=== PATIENT | female | born 1995 | race Caucasian/White ===

== ENCOUNTER 2017-01-27 16:12 | Emergency (ER) | payer OTHER ==
--- NOTE | 2017-01-27 17:32 | ER Document Report ---
ED Medical Screen (RME) - General Chief Complaint: Headache Stated Complaint: HEADACHES WEAKNESS Time Seen by Provider: 01/27/17 17:29 Mode of Arrival: Ambulatory Information source: Patient Notes: Patient is a 21-year-old with a history of seizures who presents to the ER today for increased seizure activity over the past 2 weeks. Patient admits to headaches all over her head and over the last day confusion. Significant other states that she has been very confused today, asking over and over again where they were going, asking for things to be repeated, trying to plug in a phone pharmacy technologist to charge her laptop, Etc. Patient is not on any seizure medication. TRAVEL OUTSIDE OF THE [place] IN LAST 30 DAYS: No - Related Data Allergies/Adverse Reactions: No Known Allergies Allergy (Unverified 01/27/17 16:39) Past Medical History - General Information source: Patient, Friend Renal/ Medical History: Denies: Hx Peritoneal Dialysis Review of Systems - Review of Systems Neurological/Psychological: See HPI Physical Exam - Vital signs Vitals: Temp Pulse Resp BP Pulse Ox 98.3 F 108 H 16 132/62 H 100 01/27/17 16:36 01/27/17 16:36 01/27/17 16:36 01/27/17 16:36 01/27/17 16:36 - Notes Notes: PHYSICAL EXAMINATION: GENERAL: Well-appearing and in no acute distress. NEUROLOGICAL: Cranial nerves grossly intact. Normal sensory/motor exams. Course - Vital Signs Vital signs: Temp Pulse Resp BP Pulse Ox 98.3 F 108 H 16 132/62 H 100 01/27/17 16:36 01/27/17 16:36 01/27/17 16:36 01/27/17 16:36 01/27/17 16:36
--- NOTE | 2017-01-27 18:09 | RADIOLOGY REPORT (SQ) ---
EXAM DESCRIPTION: CT HEAD WITHOUT COMPLETED DATE/TIME: 01/27/2017 6:00 pm REASON FOR STUDY: confusion, headache, seizures COMPARISON: None. TECHNIQUE: Axial images acquired through the brain without intravenous contrast. Images reviewed wi th bone, brain and subdural windows. Images stored on PACS. All CT scanners at this facility use dose modulation, iterative reconstruction, and/or weight based d osing when appropriate to reduce radiation dose to as low as reasonably achievable (ALARA). [facility]: Dose Right [facility]: CareDose [facility]: Dose Right [facility]: Teradose 4D [facility]: Smart [employer] RADIATION DOSE: Up-to-date CT equipment and radiation dose reduction techniques were employed. CTDIv ol: 64.6 mGy. DLP: 1034 mGy-cm. mGy. LIMITATIONS: None. FINDINGS: VENTRICLES: Normal size and contour. CEREBRUM: No masses. No hemorrhage. No midline shift. No evidence for acute infarction. Normal gra y/white matter differentiation. No areas of low density in the white matter. CEREBELLUM: No masses. No hemorrhage. No alteration of density. No evidence for acute infarction. EXTRAAXIAL SPACES: No fluid collections. No masses. ORBITS AND GLOBE: No intra- or extraconal masses. Normal contour of globe without masses. CALVARIUM: No fracture. PARANASAL SINUSES: No fluid or mucosal thickening. SOFT TISSUES: No mass or hematoma. OTHER: No other significant finding. IMPRESSION: NORMAL BRAIN CT WITHOUT CONTRAST. EVIDENCE OF ACUTE STROKE: NO. COMMENT: Quality ID # [id number]: Final reports with documentation of one or more dose reduction techniques (e.g., Automated exposure control, adjustment of the mA and/or kV according to patient size, use of iterative reconstruction technique) TECHNICAL DOCUMENTATION: JOB ID: [id number]- All Rights Reserved
[2017-01-27 18:28] LABS: ABSOLUTE BASOPHILS # (AUTO) 0.1 10^3/uL (0.0-0.2); ABSOLUTE EOSINOPHILS # (AUTO) 0.2 10^3/uL (0.0-0.6); ABSOLUTE LYMPHOCYTES (AUTO) 3.7 10^3/uL (0.5-4.7); ABSOLUTE MONOCYTES (AUTO) 0.7 10^3/uL (0.1-1.4); ABSOLUTE NEUT (AUTO) 6.4 10^3/uL (1.7-8.2); BASOPHILS % (AUTO) 0.7 % (0-2); EOSINOPHILS % (AUTO) 1.5 % (0-6); HEMATOCRIT 40.9 % (36.0-47.0); HEMOGLOBIN 13.9 g/dL (12.0-15.5); HGB HCT DIFFERENCE 0.8; LYMPHOCYTES % (AUTO) 33.3 % (13-45); MEAN CORPUSCULAR HEMOGLOBIN 28.9 pg (27.0-33.4); MEAN CORPUSCULAR HGB CONC 34.1 g/dL (32.0-36.0); MEAN CORPUSCULAR VOLUME 85 fl (80-97); MONOCYTES % (AUTO) 6.4 % (3-13); RED BLOOD COUNT 4.83 10^6/uL (3.72-5.28); SEGMENTED NEUTROPHILS % (AUTO) 58.1 % (42-78); WHITE BLOOD COUNT 11.1 10^3/uL (4.0-10.5)
[2017-01-27 18:47] LABS: ALANINE AMINOTRANSFERASE 49 U/L (9-52); ALBUMIN 4.7 g/dL (3.5-5.0); ALKALINE PHOSPHATASE 59 U/L (38-126); ANION GAP 14 (5-19); ASPARTATE AMINO TRANSFERASE 26 U/L (14-36); BILIRUBIN,DIRECT 0.4 mg/dL (0.0-0.4); BILIRUBIN,TOTAL 0.9 mg/dL (0.2-1.3); BLOOD UREA NITROGEN 13 mg/dL (7-20); CALCIUM 9.8 mg/dL (8.4-10.2); CARBON DIOXIDE 25 mmol/L (22-30); CHLORIDE 99 mmol/L (98-107); CREATININE RESULT 0.77 mg/dL (0.52-1.25); GLUCOSE 87 mg/dL (75-110); SODIUM 138.1 mmol/L (137-145); TOTAL PROTEIN 7.7 g/dL (6.3-8.2)
[2017-01-27] MEDS ORDERED: NORMAL SALINE 1000 ML 1,000 ML IV ONE (19:34)
[2017-01-27] MEDS ORDERED: METOCLOPRAMIDE HCL INJ/PF 10 MG/2 ML SDV IV ONE (19:34)
[2017-01-27] MEDS ORDERED: DIPHENHYDRAMINE HCL 50 MG/ML VIAL IV ONE (19:34)
[2017-01-27] MEDS ORDERED: KETOROLAC TROMETHAMINE INJ/PF 30 MG/1 ML SDV IV ONE (19:34)
--- NOTE | 2017-01-27 19:36 | ER Document Report ---
ED General - General Chief Complaint: Headache Stated Complaint: HEADACHES WEAKNESS Time Seen by Provider: 01/27/17 17:29 Mode of Arrival: Ambulatory Notes: Patient is a 21-year-old female that comes emergency department for chief complaint of headaches and confusion. She states that she gets headaches every day of her life for the past 6 years, she states this was not particularly worse than usual but her significant other has been telling her that she has had difficulty focusing, she has to be redirected, and she has difficulty remembering things. Patient states that she has been evaluated for seizures, she states that she was told when she feels lightheadedness coming over her to lie down and clench her jaw to keep from biting her tongue when she has a seizure. She is not on any seizure medications. She has been evaluated by neurology. She is currently only taking cyclobenzaprine for headaches and she states it is not helping. She denies any head injury, fever, vomiting, focal numbness or weakness, visual changes. TRAVEL OUTSIDE OF THE [place] IN LAST 30 DAYS: No - Related Data Allergies/Adverse Reactions: No Known Allergies Allergy (Unverified 01/27/17 16:39) Past Medical History - General Information source: Patient, Friend - Social History Smoking Status: Current Every Day Smoker Frequency of alcohol use: None Drug Abuse: None Lives with: Family Family History: Reviewed & Not Pertinent Patient has suicidal ideation: No Patient has homicidal ideation: No Renal/ Medical History: Denies: Hx Peritoneal Dialysis Surgical Hx: Negative - Immunizations Immunizations up to date: Yes Hx Diphtheria, Pertussis, Tetanus Vaccination: Yes Review of Systems - Review of Systems Constitutional: No symptoms reported EENT: No symptoms reported Cardiovascular: See HPI Respiratory: No symptoms reported Gastrointestinal: No symptoms reported Genitourinary: No symptoms reported Female Genitourinary: No symptoms reported Musculoskeletal: No symptoms reported Skin: No symptoms reported Hematologic/Lymphatic: No symptoms reported Neurological/Psychological: See HPI Physical Exam - Vital signs Vitals: Temp Pulse Resp BP Pulse Ox 98.3 F 108 H 16 132/62 H 100 01/27/17 16:36 01/27/17 16:36 01/27/17 16:36 01/27/17 16:36 01/27/17 16:36 Interpretation: Normal - General General appearance: Appears well, Alert In distress: None - HEENT Head: Normocephalic, Atraumatic Eyes: Normal Pupils: PERRL - Respiratory Respiratory status: No respiratory distress Chest status: Nontender Breath sounds: Normal Chest palpation: Normal - Cardiovascular Rhythm: Regular. No: Tachycardia Heart sounds: Normal auscultation, S1 appreciated, S2 appreciated Murmur: No - Abdominal Inspection: Normal Distension: No distension Bowel sounds: Normal Tenderness: Nontender. No: Tender, Guarding Organomegaly: No organomegaly - Back Back: Normal, Nontender. No: Tender - Extremities General upper extremity: Normal inspection, Nontender, Normal color, Normal ROM , Normal temperature General lower extremity: Normal inspection, Nontender, Normal color, Normal ROM , Normal temperature, Normal weight bearing. 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 No nuchal rigidity. No fever. I did review the workup ordered for her, I did add magnesium and alcohol, workup is unremarkable. I also reviewed the CAT scan of the head performed in triage. This has no acute abnormalities. Patient was given a migraine cocktail, afterwards when I evaluated her she was smiling and stated that she feels much better. She states she is ready to leave. She states that she actually has a primary care follow-up already scheduled for tomorrow. I discussed workup, symptoms, I discussed how her reported symptoms are not suggestive of a seizure, more likely a migraine, especially with resolution with her cocktail. I did discuss return precautions in detail. Patient did request a prescription for something for her headaches, I did prescribe her Fioricet. - Vital Signs Vital signs: Temp Pulse Resp BP Pulse Ox 97.6 F 78 18 101/53 L 98 01/27/17 22:03 01/27/17 22:03 01/27/17 22:03 01/27/17 22:03 01/27/17 22:03 - Laboratory Result Diagrams: 01/27/17 18:10 01/27/17 18:10 Laboratory results interpreted by me: 01/27/17 01/27/17 18:10 19:38 WBC 11.1 H Urine Ketones TRACE H Ur Leukocyte Esterase TRACE H Discharge - Discharge Clinical Impression: Headache Qualifiers: Headache type: unspecified Headache chronicity pattern: acute headache Intractability: not intractable Qualified Code(s): R51 - Headache Condition: Stable Disposition: HOME, SELF-CARE Additional Instructions: Your symptoms and response to treatment are consistent with a migraine headache. CAT scan imaging and workup did not show any concerning abnormalities. Take the prescribed medication if needed for headache, follow-up with primary care for additional management. Return to the emergency department for any concerning or worsening symptoms including severe headache, vomiting, fever, etc. Prescriptions: Butalb/Acetaminophen/Caffeine [Fioricet (50-325-40 mg) Tablet] 1 tab PO Q4HP PRN #30 tab PRN Reason: Forms: Return to Work
[2017-01-27 19:56] LABS: APPEARANCE,URINE CLEAR; BILIRUBIN,URINE NEGATIVE (NEGATIVE); GLUCOSE, URINE NEGATIVE (NEGATIVE); KETONES,URINE TRACE mg/dL (NEGATIVE); LEUKOCYTE ESTERASE,URINE TRACE (NEGATIVE); NITRITE,URINE NEGATIVE (NEGATIVE); PROTEIN,URINE NEGATIVE (NEGATIVE); URINE SPECIFIC GRAVITY 1.005; UROBILINOGEN,URINE NEGATIVE mg/dL (<2.0)
[2017-01-27 20:06] LABS: MAGNESIUM 2.2 mg/dL (1.6-2.3)
[2017-01-27 20:12] LABS: URINE BARBITURATES SCREEN NEGATIVE; URINE METHADONE SCREEN NEGATIVE; URINE OPIATES LOW NEGATIVE; URINE PHENCYCLIDINE SCREEN NEGATIVE
[2017-01-27 20:12] LABS: ALCOHOL < 10 mg/dL (NONE DETECTED)
[2017-01-27 22:16] VITALS: BP 101/53
== END 2017-01-27 22:19 | disposition home or self-care (01) ==
LOC: ER 16:12
DX: R51 Headache (principal); R41.0 Disorientation, unspecified; F17.200 Nicotine dependence, unspecified, uncomplicated; Z79.899 Other long term (current) drug therapy
CPT/HCPCS: 99284; 96361; 96374; 96375; 36415; 80307 ×2; 83735; 85025; 81025; 80053; 81001; 70450; J1200; J1885; J2765; J7030

== ENCOUNTER 2019-10-08 13:17 | Emergency (ER) | payer OTHER | END 2019-10-08 13:30 | disposition left against medical advice (07) | LOC: ER 13:17 | DX: Z53.21 Procedure and treatment not carried out due to patient leaving prior to being seen by health care provider (principal) ==